=== PATIENT | male | born 1965 | race Hispanic/Latino ===

== ENCOUNTER 2017-04-24 08:26 | Day surgery (SDC) | payer MEDICARE ==
[2017-04-23 10:31] LABS: BASOPHILS % (AUTO) 1.4 % (0.0-5.0); EOSINOPHILS % (AUTO) 2.4 % (0.0-8.0); LYMPHOCYTES % (AUTO) 15.1 % (21.0-51.0); MEAN CORPUSCULAR HEMOGLOBIN 31.6 pg (27.0-33.0); MEAN CORPUSCULAR HGB CONC 34.3 g/dL (32.0-36.0); MEAN CORPUSCULAR VOLUME 92.3 fL (79-99); MONOCYTES % (AUTO) 12.5 % (3.0-13.0); NEUTROPHILS % (AUTO) 68.6 % (40.0-77.0); PLATELET COUNT (AUTO) 351 K/uL (130-400); RED BLOOD CELL COUNT(AUTO) 4.12 MIL/uL (4.50-6.20); RED CELL DISTRIBUTION WIDTH 16.4 % (11.0-15.5)
[2017-04-23 10:34] VITALS: BP 121/67
[2017-04-23 10:37] LABS: CREATININE 6.1 mg/dL (0.5-1.5); POTASSIUM 4.8 mmol/L (3.5-5.1)
[2017-04-23 10:37] LABS: BILIRUBIN,URINE SMALL (NEGATIVE); COLOR,URINE YELLOW (YELLOW); GLUCOSE, URINE (UA) 250 mg/dL (NEGATIVE); KETONES,URINE NEGATIVE (NEGATIVE); LEUKOCYTE ESTERASE ,URINE NEGATIVE (NEGATIVE); NITRATE,URINE NEGATIVE (NEGATIVE); OCCULT BLOOD,URINE SMALL (NEGATIVE); PH,URINE 5.5 (5.0-8.0); PROTEIN,URINE >=300 (NEGATIVE); UROBILINOGEN,URINE 0.2 mg/dL (0.2-1.0)
[2017-04-23 10:45] LABS: INR 1.09 (0.85-1.15); PARTIAL THROMBOPLASTIN TIME 29.8 SEC (26.3-35.5); PROTHROMBIN TIME 11.4 SEC (9.6-11.6)
[2017-04-23 10:45] LABS: APPEARANCE,URINE SL CLOUDY (CLEAR)
[2017-04-23 10:50] LABS: BACTERIA,URINE Few /HPF (None Seen); RBC,URINE 0-1 /HPF (0-1); SQUAMOUS EPITHELIAL CELL,UR Rare /LPF (0-2); WBC,URINE 0-1 /HPF (0-1)
[2017-04-23 10:51] LABS: AMORPHOUS SEDIMENT,UR Few /LPF (None Seen)
[~2017-04-24] VITALS: Ht 176.5 cm; Wt 75.7 kg
[2017-04-24] VITALS (7 sets, daily range): BP systolic 135–152; BP diastolic 68–74
[~2017-04-24 08:26] MED LIST: FOLI1TAB85 PO; LOVA10TA2 PO; NIFE60TA71 PO; OMEP40CA37 PO; SODIUM CHLORIDE 0.9% 500ML 500 ML IV SCH; TRAM50TA4 PO
[2017-04-24] MEDS ORDERED: SEVE800 PO (09:30)
[2017-04-24] MEDS ORDERED: FOLI1TAB85 PO (09:31)
[2017-04-24] MEDS ORDERED: METO-391 PO (09:33)
[2017-04-24] MEDS ORDERED: SODIUM CHLORIDE 0.9% 1000ML 1,000 ML IV ONE (09:36)
[2017-04-24] MEDS ORDERED: ISOVUE-370 50ML VIAL IV ONE ×2 (14:52→15:31)
[2017-04-24] MEDS ORDERED: LIDOCAINE HCL 2% 20ML ONE (14:52)
[2017-04-24] MEDS ORDERED: IOPAMIDOL-370 100 ML VIAL IV ONE (14:52)
[2017-04-24] MEDS ORDERED: BIVALIRUDIN 250 MG/VIAL IV ONE (14:57)
[2017-04-24] MEDS ORDERED: NITROGLYCERIN 5 MG/ML 10 ML VIAL IV ONE (14:57)
[2017-04-24] MEDS ORDERED: GLUCAGON 1MG KIT 1 MG ML IM PRN (15:45)
[2017-04-24] MEDS ORDERED: DEXTROSE 50%-WATER 50 ML DISP.SYRIN IV PRN (15:45)
== END 2017-04-24 17:55 | disposition home or self-care (01) ==
LOC: DAH 08:26 → EDUNIT# 10:30 → DAH 17:55
PROVIDERS: ATTEND Internal Medicine Cardiovascular Disease
DX: I25.10 Atherosclerotic heart disease of native coronary artery without angina pectoris (principal); I12.0 Hypertensive chronic kidney disease with stage 5 chronic kidney disease or end stage renal disease; E11.22 Type 2 diabetes mellitus with diabetic chronic kidney disease; N18.6 End stage renal disease; E78.5 Hyperlipidemia, unspecified; Z82.49 Family history of ischemic heart disease and other diseases of the circulatory system; Z83.3 Family history of diabetes mellitus; Z79.899 Other long term (current) drug therapy; Z68.32 Body mass index [BMI] 32.0-32.9, adult; Z79.2 Long term (current) use of antibiotics; Z99.2 Dependence on renal dialysis
CPT/HCPCS: 36415; 71045; 80048; 81001; 82948 ×3; 85025; 85610; 85730; 93005; 93458; A4606; C1760; C1894; J1644 ×2; J3490 ×2; J7030; Q9967 ×2; J0583